=== PATIENT | female | born 1975 | race Caucasian/White ===

== ENCOUNTER 2020-08-09 16:51 | Emergency (ER) | payer BC, SELFPAY ==
--- NOTE | ~2020-08-09 | XR_ITS ---
XR foot RT min 3V 08/09/2020 17:04 INDICATION: Right foot pain PROCEDURE: 4 views right foot COMPARISON: No prior studies for comparison. FINDINGS: Fracture, dislocation or subluxation is not identified. Lisfranc joint intact. The soft tis sues appear within normal limits. No foreign bodies are identified. IMPRESSION: 1: NO ACUTE BONE OR JOINT ABNORMALITY IDENTIFIED. Reviewed, dictated and finalized at location A.
[2020-08-09 17:04] VITALS: BP 136/86; PULSE 77; RESP 16; TEMP 36.7; O2SAT 100
--- NOTE | 2020-08-09 17:06 | ED.LOWEXIN ---
HPI - Extremity Injury (Lower) General Chief Complaint: Extremity Injury, Lower Stated Complaint: Swollen foot Source: patient and RN notes reviewed Limitations: no limitations History of Present Illness HPI Narrative: The overweight patient, on a few meds, presents with right foot discomfort. Patient states she has >1 week history of right, extensor metatarsal foot pain that is somewhat disto-lateral ,[place] then. No bleeding, deformity, prior / other injury, direct trauma; symptoms are mild, worse with activity, better with rest or elevation. She is on chronic tramadol after a back fusion; patient offered flat/postop shoe which she declines. Related Data Home Medications Medication Instructions Recorded Confirmed escitalopram oxalate 20 mg PO DAILY 08/09/20 08/09/20 tamoxifen 20 mg PO DAILY 08/09/20 08/09/20 tramadol 50 mg PO DAILY 08/09/20 08/09/20 Allergies Allergy/AdvReac Type Severity Reaction Status Date / Time NSAIDS (Non-Steroidal Allergy Unknown Anaphylactic Verified 08/09/20 16:56 Anti-Inflamma Shock Review of Systems Review of Systems: Narrative: General/Constitutional: No weight loss,fever Eyes: N0: Redness,discharge Ears/Nose/Throat: No: Epistaxis,ear discharge Respiratory: Denies: Hemoptysis Gastrointestinal: No Vomiting, Bleeding-rectal Skin: No Lumps, eruption Neurologic: No Focal Weakness,Sz Hematologic: Denies: Petechiae/Purpura Psychiatric: No: Suicida ideationl All Other Systems: Reviewed and Negative [facility] Comments At time of signature, agree with nursing past medical, surgical, social and family history. There is no relevant family history pertinent to the presenting complaint Exam Narrative: Exam Narrative: General Appearance: Well appearing, , Conjunctiva clear Ears: External ear normal, Auditory canal normal Nose: Normal nose, Nares clear Mouth/Throat: Normal appearing, Normal lips, Supple Respiratory: Airway patent, No respiratory distress MS-foot: Normal strength (mostly intact, limited flexion/extension by pain), Tenderness (MT 1-2 distal laterally, with mild decreased ROM), Swelling (extensor distal laterally), Other (no anterior drawer, no collateral laxity, no Achilles tenderness, no fifth MT tenderness) Skin: Warm, Dry, Normal color Neurological: A&O x3, , Normal affect Course Course Emergency Course: Films visualized, interpreted by radiologist, agree, normal see report Vital Signs Vital signs: Vital Signs Temperature 98.0 F 08/09/20 17:04 Pulse Rate 77 08/09/20 17:04 Respiratory Rate 16 08/09/20 17:04 Blood Pressure 136/86 08/09/20 17:04 Pulse Oximetry 100 08/09/20 17:04 Temperature 98.0 F 08/09/20 17:04 Pulse Rate 77 08/09/20 17:04 Respiratory Rate 16 08/09/20 17:04 Blood Pressure 136/86 08/09/20 17:04 Pulse Oximetry 100 08/09/20 17:04 Discharge Plan Discharge Clinical Impression: Sprain of foot, right Qualifiers: Encounter type: initial encounter Qualified Code(s): S93.601A - Unspecified sprain of right foot, initial encounter Patient Disposition: Home, Self-Care Condition: Stable Instructions: Tendinitis (ED) Prescriptions: New prednisone 20 mg tablet 60 mg PO DAILY Qty: 9 RF: 0 acetaminophen-codeine 300-30 mg tablet 1 - 2 tablet PO HS PRN (Reason: pain) Qty: 14 RF: 0 No Action tramadol 50 mg tablet 50 mg PO DAILY RF: 0 tamoxifen 20 mg tablet 20 mg PO DAILY RF: 0 escitalopram oxalate 20 mg tablet 20 mg PO DAILY RF: 0 Follow-up/Referrals: Tayo,Davion Medel MD [Primary Care Provider] -
== END 2020-08-09 17:19 | disposition home or self-care (01) ==
PROVIDERS: Emergency Provider Emergency Medicine; PCP Internal Medicine
DX: S93.601A Unspecified sprain of right foot, initial encounter (principal); W01.0XXA Fall on same level from slipping, tripping and stumbling without subsequent striking against object, initial encounter
CPT/HCPCS: 73630; 99213; G0463

== ENCOUNTER 2024-03-30 09:37 | Emergency (ER) | payer OTHER, SELFPAY ==
[2024-03-30 09:53] VITALS: BP 128/82; PULSE 70; RESP 16; TEMP 36.9; O2SAT 100
--- NOTE | 2024-03-30 10:07 | ED_ITS ---
HPI - Dental/Oral General Chief complaint: Dental/Oral Stated complaint: Left Side Facial Swelling Time Seen by Provider: 03/30/24 09:44 Source: patient Mode of arrival: ambulatory Limitations: no limitations History of Present Illness HPI Narrative: Ethel is a 48-year-old female patient presenting to the clinic today with complaints of left-sided facial swelling/upper posterior dental pain x2 days. Denies any fevers, chills, or body aches. 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 Is unable to take NSAIDs. Has an appointment to see her dentist. Related Data Home Medications ?Medication ?Instructions ?Recorded ?Confirmed ?Last Taken ?Type escitalopram oxalate 20 mg tablet 20 mg PO DAILY 08/09/20 08/09/20 Unknown History tamoxifen 20 mg tablet 20 mg PO DAILY 08/09/20 08/09/20 Unknown History tramadol 50 mg tablet 50 mg PO DAILY 08/09/20 08/09/20 Unknown History Allergies Allergy/AdvReac Type Severity Reaction Status Date / Time NSAIDS (Non-Steroidal Allergy Unknown Anaphylactic Verified 03/30/24 09:55 Anti-Inflamma Shock Review of Systems Review of Systems: Pertinent positives per HPI. Patient denies any fever, chills, rash, headache, visual changes, dizziness, cough, runny nose, sore throat, shortness of breath, chest pain, palpitations, nausea, vomiting, diarrhea, constipation, abdominal pain, or any urinary issues. [facility] Comments At the time of my signature, I reviewed and agree with the nursing past medical, surgical, social, and family history. There is no relevant family history pertinent to the patient complaint. Exam Narrative: General: Well-developed, well nourished, in no apparent distress Head: Normocephalic, atraumatic, left maxillary facial swelling Eyes: Pupils equally round and reactive to light bilaterally, EOM intact, sclera and conjunctive clear, no discharge, lids normal Ears: TMs intact and clear, ear canals clear, no drainage, grossly hearing normal. Nose: Nares patent, no discharge, no inflammation, no sinus tenderness. Mouth: Oropharynx without lesions or masses, poor dentition, MMM. Tenderness to palpation with gingival swelling without palpable abscess to left upper 1st and 2nd molar Neck: Supple, trachea midline, no enlargement of anterior or posterior cervical nodes, no thyroid masses or goiter palpable. Cardio: Regular rate and rhythm, s1 and s2 normal, no murmur appreciated. Resp: Clear to auscultation bilaterally anteriorly and posteriorly, no rhonchi, rales, wheezing or rubs Course Course Emergency Course: Portions of this record may have been created with voice recognition software. Level of Care: Express Care Visit Vital Signs Vital signs: Vital Signs Temperature 36.9 C 03/30/24 09:53 Pulse Rate 70 03/30/24 09:53 Respiratory Rate 16 03/30/24 09:53 Blood Pressure 128/82 03/30/24 09:53 Pulse Oximetry 100 03/30/24 09:53 Oxygen Delivery Room Air 03/30/24 09:53 Temperature 36.9 C 03/30/24 09:53 Pulse Rate 70 03/30/24 09:53 Respiratory Rate 16 03/30/24 09:53 Blood Pressure 128/82 03/30/24 09:53 Pulse Oximetry 100 03/30/24 09:53 Oxygen Delivery Room Air 03/30/24 09:53 Vital signs reviewed MDM - Dental/Oral MDM Narrative Medical decision making narrative: At the time of visit patient is resting comfortably on the exam table. Patient appears to be nontoxic. Plan: I suspect patient has a dental infection. Prescription for Augmentin was sent to the pharmacy. Supportive measures were discussed with the patient and they voiced understanding discharge instructions and agrees to treatment plan. Return precautions reviewed Differential Diagnosis Differential diagnosis: Likely gingival abscess, dental caries, toothache, dental abscess, fracture of tooth and aphthous ulcer Discharge Plan Discharge Clinical Impression: Dental infection Patient Disposition: Home, Self-Care Condition: Stable Instructions: Antibiotic Form, Toothache (ED) Additional Instructions: Increase fluids and stay well hydrated May take Benadryl as discussed for swelling Take Augmentin as prescribed Apply cool compress to the affected area to help alleviate swelling May apply Orajel to help alleviate pain Follow-up with your dentist as soon as possible Patient Language: Salvadorean Prescriptions: New amoxicillin-pot clavulanate 875-125 mg tablet 1 tablet PO Q12H 10 Days Qty: 20 0RF No Action tramadol 50 mg tablet 50 mg PO DAILY tamoxifen 20 mg tablet 20 mg PO DAILY escitalopram oxalate 20 mg tablet 20 mg PO DAILY Follow-up/Referrals: Tayo,Davion Medel MD [Primary Care Provider] - Time of Disposition: 10:02 Quality NIHSS Nursing Documentation ED NIHSS nursing documentation: reviewed/agree
== END 2024-03-30 10:15 | disposition home or self-care (01) ==
PROVIDERS: Emergency Provider Nurse Practitioner Family; PCP Internal Medicine
DX: K04.7 Periapical abscess without sinus (principal); M87.180 Osteonecrosis due to drugs, jaw; T45.1X5A Adverse effect of antineoplastic and immunosuppressive drugs, initial encounter; F41.9 Anxiety disorder, unspecified; F32.A Depression, unspecified; Z85.3 Personal history of malignant neoplasm of breast; Z90.13 Acquired absence of bilateral breasts and nipples
CPT/HCPCS: 99213; G0463

== ENCOUNTER 2025-02-21 09:23 | Outpatient (CLI) | payer OTHER, SELFPAY ==
--- NOTE | ~2025-02-21 | US_ITS ---
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 Findings: Correlating with the palpable area within the deep subcutaneous tissues there is a complex focus measuring 1 x 0.7 x 0.5 cm with additional smaller cystic noted, no increased flow. IMPRESSION: Possible ganglion cyst but incompletely evaluated. Contrast-enhanced MRI is recommended Reviewed, dictated and finalized at location P. [employer] OFFICER IMPRESSION: Possible ganglion cyst but incompletely evaluated. Contrast-enhance d MRI is recommended
== END 2025-02-21 09:24 | disposition home or self-care (01) ==
PROVIDERS: PCP Internal Medicine
DX: L72.9 Follicular cyst of the skin and subcutaneous tissue, unspecified (principal); Z33.1 Pregnant state, incidental
CPT/HCPCS: 76882